=== PATIENT | male | born 1950 | race Caucasian/White ===

== ENCOUNTER → 2024-08-15 | Outpatient (CLI) | payer BC ==
[~2024-08-15] VITALS: Ht 177.8 cm; Wt 88.0 kg
[2024-08-15] MEDS: REGADENOSON 0.4 MG/5 ML SYRG IV ONE ×2 (08:59)
--- NOTE | 2024-08-15 16:24 | DVHSR ---
APPROVED REPORT Exam: Nuclear Stress Test Indication: Chest pain Stress Tech: Shirin Chavez Ht: 5 ft 10 in Wt: 194 lbs BSA: 2.06 m2 HR: 69 bpm BP: 134/84 mmHg BMI: 27.83 Rhythm: NSR Medical History Medical History: Hyperlipidemia, Mitral Valve Prolapse, TIA, BPH Allergies: No known drug allergies Stress Test Details Stress Test: Pharmacologic stress testing performed using 0.4 mg of regadenoson per 5 mL given IV ov er 10 seconds. Reason for pharmacologic stress test: CHEST PAIN. HR Resting HR: 69 bpmMax Heart Rate (APMHR): 148.075244 bpm Max HR Achieved: 115 bpmTarget HR (85% APMHR): 125.629074 bpm % of APMHR: 77.70 Recovery HR: 87 bpm BP Resting BP: 134/84 mmHg Recovery BP: 105/67 mmHg ECG Resting ECG: Sinus Rhythm Clinical Reason for Termination: Completed protocol Nurse Comments Received patient from Nuclear Medicine. Patient is A&O x4 and on RA. FOR VS please refer back to st ress test assessment documentation. Patient is connected to dampener. See cardio-neuro proce dural notes for addtional details. PIV flushes well. Reviewed POC and patient verbalizes understand ing and consents to test. Lexiscan stress test performed per protocol. multimedia technician administered the Cardiolite. Pat ient tolerated well and vitals returned to baseline. Transferred to Nuclear Medicine via wheelchair with tech in stable condition. Stress ECG Conclusion lvef 66% normal perfusion scan no severe ischemia noted NM EXAM: Myocardial Perfusion REST/STRESS Imaging Protocol: Rest Tc-99m/Stress Tc-99m 1 day Resting Data Rest SPECT myocardial perfusion imaging was performed in supine position 45 minutes following the int ravenous injection of 9.2 mCi of Tc-99m Sestamibi. Time of rest injection: 07:50 Date: 08/15/2024 Time of rest imagin:35 Date: 08/15/2024 Administration Route: IV Administration Site: Left Arm Pharmacologic Stress Pharmacologic stress test was performed by injecting Regadenoson 0.4 mg IV push followed by the intra venous injection of 30.5 mCi of Tc-99m Sestamibi. Time of stress injection: 08:59 Date: 08/15/2024 Time of stress imagin:44 Date: 08/15/2024 Administration Route: IV Administration Site: Left Arm Gated Stress SPECT was performed 45 minutes after stress injection. The images were gated to evaluate regional wall motion and calculate left ventricular ejection fracti on. Stress only was performed in the Supine position. Nuclear Conclusion Nuclear Findings: negative for ischemia lvef 66% normal perfusion scan no severe ischemia noted
== END | disposition home or self-care (01) ==
LOC: XY 07:30
PROVIDERS: ATTEND Specialist
DX: R07.9 Chest pain, unspecified (principal); E78.5 Hyperlipidemia, unspecified; I34.1 Nonrheumatic mitral (valve) prolapse; N40.0 Benign prostatic hyperplasia without lower urinary tract symptoms; Z86.73 Personal history of transient ischemic attack (TIA), and cerebral infarction without residual deficits
CPT/HCPCS: 78452; 93017; A9500; J2785